=== PATIENT | male | born 2000 | race African-American/Black ===

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

== ENCOUNTER 2021-12-15 14:50 | Emergency (ER) | payer OTHER ==
[2021-12-15 17:08] LABS: ALT (SGPT) 16 U/L (8-55); AST (SGOT) 20 U/L (5-34); Albumin 4.4 g/dL (3.5-5.0); Alkaline Phosphatase 110 U/L (50-130); Anion Gap 14 mmol/L (10-20); BUN (Urea Nitrogen) 11 mg/dL (8.9-20.6); Bilirubin, Total 0.6 mg/dL (0.2-1.2); Calc. Creatinine Clearance 0 mL/min (70-130); Calcium 9.4 mg/dL (7.8-10.44); Carbon Dioxide 26 mmol/L (22-29); Chloride 104 mmol/L (98-107); Globulin 4.1 g/dL (2.4-3.5); Glucose 86 mg/dL (70-105); Potassium 4.4 mmol/L (3.5-5.1); Protein, Total 8.5 g/dL (6.0-8.3); Sodium 140 mmol/L (136-145)
[2021-12-15 17:14] LABS: #Basophils 0.1 thou/uL (0.0-0.2); #Eosinphils 0.3 thou/uL (0.0-0.7); #Lymphocytes 2.3 thou/uL (1.20-3.40); #Monocytes 0.9 thou/uL (0.11-0.59); #Neutrophils 5.4 thou/uL (1.40-6.50); %Basophils 1.4 % (0.0-1.0); %Eosinophils 2.8 % (0.0-10.0); %Lymphocytes 25.8 % (28.0-48.0); %Monocytes 10.1 % (0.0-4.0); %Neutrophils 59.9 % (31.0-61.0); Giant Platelets SLIGHT; Hemoglobin 14.4 g/dL (14.0-18.0); Large Platelets SLIGHT; Mean Corpuscular HGB CONC 30.3 g/dL (32.0-36.0); Mean Corpuscular Hemoglobin 22.6 pg (25.0-35.0); Mean Corpuscular Volume 74.6 fL (78.0-98.0); Mean Platelet Volume 16.3 fL (7.4-10.4); Platelet Count 150 thou/uL (130-400); Platelet Morphology Comment Appears Adequate; RBC Distribution Width 13.4 % (11.5-14.5); Red Blood Cell (RBC) Count 6.36 mill/uL (4.00-5.20)
== END 2021-12-15 18:19 | disposition home or self-care (01) ==
LOC: MADERS 14:50
DX: R42 Dizziness and giddiness (principal); I45.10 Unspecified right bundle-branch block; R11.2 Nausea with vomiting, unspecified; R29.700 NIHSS score 0
CPT/HCPCS: 36415; 71045; 80053; 83735; 84443; 85025; 93005

== ENCOUNTER 2022-10-12 08:01 | Emergency (ER) | payer OTHER ==
[2022-10-12] MEDS ORDERED: Ondansetron ODT 4 MG TAB ONE (08:35)
== END 2022-10-12 08:39 | disposition home or self-care (01) ==
LOC: MADERS 08:01
DX: R11.10 Vomiting, unspecified (principal)
CPT/HCPCS: 99283; Q0162

== ENCOUNTER 2023-05-03 22:56 | Emergency (ER) | payer OTHER, SELFPAY ==
[2023-05-03] MEDS ORDERED: Oxymetazoline HCl 0.05% (30 ML BOT) ONE (23:31)
== END 2023-05-03 23:35 | disposition home or self-care (01) ==
LOC: MADERS 22:56
DX: J06.9 Acute upper respiratory infection, unspecified (principal)
CPT/HCPCS: 99283

== ENCOUNTER 2023-06-14 13:33 | Emergency (ER) | payer SELFPAY | END 2023-06-14 14:40 | disposition home or self-care (01) | LOC: MADERS 13:33 | DX: K05.00 Acute gingivitis, plaque induced (principal); E86.0 Dehydration; I95.1 Orthostatic hypotension | CPT/HCPCS: 87081; 87430; 99284 ==

== ENCOUNTER 2025-05-07 19:03 | Emergency (ER) | payer OTHER, SELFPAY | END 2025-05-07 19:29 | disposition home or self-care (01) | LOC: MADERS 19:03 | DX: M72.2 Plantar fascial fibromatosis (principal); F17.210 Nicotine dependence, cigarettes, uncomplicated; F17.290 Nicotine dependence, other tobacco product, uncomplicated | CPT/HCPCS: 99283 ==

== ENCOUNTER 2025-06-02 04:57 | Emergency (ER) | payer SELFPAY | END 2025-06-02 06:07 | disposition home or self-care (01) | LOC: MADERS 04:57 | DX: R11.0 Nausea (principal); F17.290 Nicotine dependence, other tobacco product, uncomplicated; Z20.822 Contact with and (suspected) exposure to COVID-19 | CPT/HCPCS: 87428; 99283 ==